=== PATIENT | male | born 1975 | race Caucasian/White ===

== ENCOUNTER → 2018-05-29 | Outpatient (CLI) | payer BC ==
--- NOTE | 2018-05-29 20:16 | US ---
EXAMINATION TYPE: US abdomen limited DATE OF EXAM: 05/29/2018 COMPARISON: NONE CLINICAL HISTORY: RUQ pain. RUQ pain and fever. EXAM MEASUREMENTS: Liver Length: 15.80cm Gallbladder Wall: .3cm CBD: .5cm Right Kidney: 10.6 x 5.2 x 4.9cm Pancreas: Obscured by bowel gas Liver: wnl Gallbladder: wnl Evidence for sonographic Gupta's sign: No CBD: wnl Right Kidney: wnl IMPRESSION: Negative right upper quadrant abdominal sonogram. No gallstones or dilated ducts.
== END | disposition home or self-care (01) ==
LOC: RADUSMAIN 18:55
PROVIDERS: ATTEND Nurse Practitioner Family
DX: R10.11 Right upper quadrant pain (principal)
CPT/HCPCS: 76705

== ENCOUNTER → 2018-05-29 | Outpatient (CLI) | payer BC ==
[2018-05-29 20:27] LABS: Basophils % (A) 1 %; Eosinophils # (A) 0.1 k/uL (0-0.7); Eosinophils % (A) 1 %; HCT 42.7 % (39.0-53.0); HGB 15.1 gm/dL (13.0-17.5); Lymphocytes # (A) 1.1 k/uL (1.0-4.8); Lymphocytes % (A) 28 %; MCH 31.7 pg (25.0-35.0); MCHC 35.3 g/dL (31.0-37.0); MCV 89.9 fL (80.0-100.0); Mean Platelet Volume 8.2; Monocytes # (A) 0.3 k/uL (0-1.0); Monocytes % (A) 8 %; Neutrophils # (A) 2.2 k/uL (1.3-7.7); Neutrophils % (A) 58 %; RBC 4.75 m/uL (4.30-5.90); RDW 12.2 % (11.5-15.5); WBC 3.9 k/uL (3.8-10.6)
[2018-05-29 20:47] LABS: Platelet Count 78 k/uL (150-450)
[2018-05-30 03:39] LABS: Albumin 4.6 g/dL (3.80-4.90); Albumin/Globulin Ratio 2.71 (1.20-2.10); Anion Gap 9.3 mmol/L (4.00-12.00); Calcium 9.4 mg/dL (8.7-10.3); Carbon Dioxide 25.7 mmol/L (21.6-31.8); Globulin 1.7 g/dL (2.1-3.7); Potassium 3.8 mmol/L (3.5-5.5); Total Bilirubin 1.4 mg/dL (0.2-1.2); Total Protein 6.3 g/dL (6.2-8.2)
== END ==
LOC: LABMAIN 18:50
PROVIDERS: ATTEND Nurse Practitioner Family
DX: R10.11 Right upper quadrant pain (principal)
CPT/HCPCS: 36415; 80053; 82150; 83690; 85025

== ENCOUNTER 2020-04-27 18:09 | Emergency (ER) | payer BC ==
[2020-04-27 18:35] VITALS: BP 122/81; PULSE 84; RESP 18; TEMP 97.7
--- NOTE | 2020-04-27 19:24 | XR ---
EXAMINATION TYPE: XR lumbar spine 2 or 3V DATE OF EXAM: 04/27/2020 COMPARISON: NONE HISTORY: Back pain TECHNIQUE: 3 views FINDINGS: There is very slight anterior subluxation of L5 in relation S1 of 4 mm. There is probably b ilateral L5 spondylolysis. Disc spaces are normal. Sacroiliac joints appear intact. IMPRESSION: L5 spondylolysis with minimal first-degree L5-S1 spondylolisthesis.
--- NOTE | 2020-04-27 19:25 | XR ---
EXAMINATION TYPE: XR thoracic spine complete DATE OF EXAM: 04/27/2020 COMPARISON: NONE HISTORY: Pain TECHNIQUE: 3 views FINDINGS: Thoracic vertebra have normal alignment. Posterior elements are intact. There is no stephanie kristy fracture. There is no paraspinal mass. IMPRESSION: Negative thoracic spine exam.
--- NOTE | 2020-04-27 20:08 | ED ---
Recheck HPI - General Chief Complaint: Recheck/Abnormal Lab/Rx Stated Complaint: back pain & abdominal pain, headaches Time Seen by Provider: 04/27/20 18:46 Source: patient Mode of arrival: ambulatory Limitations: no limitations - History of Present Illness Initial Comments: Very pleasant 45yo male presenting today to the ER for cc of back pain, concern for covid. Patient states that he was jumping in the leave with his son, stating the pile was not very large and was attempting to do a somersault like moves ect when he felt pain in his upper and lower back. Patient denies neck pain. Denies LOC or head injury. Patient states that the pain is midline of mid back and low back increases with movement/twisting or direct contact. denies abdominal pain, chest pain. 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 Denies neck stiffness, worst HERNANDEZ of life, sudden onset. Denies vomiting. loss of bowel/bladder control, urinary retention, sensation deficits or leg weakness. Patient appears well nontoxic in no acute distress on arrival. - Related Data Allergies Allergy/AdvReac Type Severity Reaction Status Date / Time No Known Allergies Allergy Verified 04/27/20 18:35 Review of Systems ROS Statement: Those systems with pertinent positive or pertinent negative responses have been documented in the HPI. ROS Other: All systems not noted in ROS Statement are negative. Past Medical History Past Medical History: COPD History of Any Multi-Drug Resistant Organisms: None Reported Past Surgical History: Ear Surgery, Hernia Repair, Orthopedic Surgery Smoking Status: Former smoker Past Alcohol Use History: Rare Past Drug Use History: None Reported General Exam - General Exam Comments Initial Comments: General: The patient is awake and alert, in no distress Eye: +3 mm pupils are equal, round and reactive to light, extra-ocular movements are intact. No nystagmus. There is normal conjunctiva bilaterally. No signs of icterus. Cardiovascular: There is a regular rate and rhythm. No murmur, rub or gallop is appreciated. Respiratory: Lungs are clear to auscultation, respirations are non-labored, breath sounds are equal. No wheezes, stridor, rales, or rhonchi. Musculoskeletal: Midline tenderness to palpation of the mid thoracic and lower lumbar spine. no skin changes. Normal ROM, no tenderness. Strength 5/5 of the LE b/l. Sensation intact of the LE b/l including the saddle region. Pulses equal bilaterally 2+. Neurological: A&O x 3. CN II-XII intact grossly, There are no obvious motor or sensory deficits. Coordination appears grossly intact. Speech is normal. Skin: Skin is warm and dry and no rashes or lesions are noted. Psychiatric: Cooperative, appropriate mood & affect, normal judgment. Limitations: no limitations Course Vital Signs 04/27/20 18:32 Temperature 97.7 F Pulse Rate 84 Respiratory 18 Rate Blood Pressure 122/81 O2 Sat by Pulse 99 Oximetry Medical Decision Making - Medical Decision Making Covid testing pending. NO SOB or Chest pain. Patient xr shows degenerative changes of the spine. Patient neurovascularly intact. hx of trauma. BP WNL. at this time i feel pt is stable for discharge with pcp f/u. return for worsening symptoms. Dr. Romero is agreeable to care plan. Disposition Clinical Impression: Back pain, Fall, Body aches, Headache Disposition: HOME SELF-CARE Condition: Good Instructions (If sedation given, give patient instructions): Back Pain (ED) Additional Instructions: Please use medication as discussed. Please follow-up with family doctor in the next 2 days, recommend orthopedic spine follow-up, we will call with covid results, return for shortness of breath, cough, chest pain, bowel bladder control urinary retention, leg weakness, new erectile dysfunction.. Please return to emergency room if the symptoms increase or worsen or for any other con cerns. Is patient prescribed a controlled substance at d/c from ED?: No Referrals: Parvez Ward MD [Primary Care Provider] - 1-2 days Supriya Redman DO [Doctor of Osteopathic Medicine] - 1-2 days Lui Hickman DO [Doctor of Osteopathic Medicine] - 1-2 days Time of Disposition: 20:07
== END 2020-04-27 20:19 | disposition home or self-care (01) ==
LOC: EC 18:09
DX: M54.5 Low back pain (principal); R51.9 Headache, unspecified; M54.6 Pain in thoracic spine; Z20.828 Contact with and (suspected) exposure to other viral communicable diseases; Z87.891 Personal history of nicotine dependence; W17.89XA Other fall from one level to another, initial encounter
CPT/HCPCS: 72072; 72100; 99284; U0003

== ENCOUNTER 2020-11-18 09:02 | Emergency (ER) | payer BC ==
[2020-11-18 09:10] VITALS: BP 133/89; PULSE 71; RESP 18; TEMP 97.8
[2020-11-18] MEDS ORDERED: KETOROLAC 15 MG/ML 1 ML VIAL IVP STA (09:26)
--- NOTE | 2020-11-18 09:29 | ED ---
Lower Extremity Injury HPI - General Chief Complaint: Extremity Injury, Lower Stated Complaint: Knee pain Time Seen by Provider: 11/18/20 09:15 Source: patient, RN notes reviewed Mode of arrival: ambulatory Limitations: no limitations - History of Present Illness Initial Comments: Patient is a 45-year-old male that presents to emergency department with right knee pain and swelling. He notes that he was playing with his kids a bunch over the weekend was walking fine on Sunday night woke up Sunday morning with a swollen right knee and moderate pain. He notes that while laying in bed the pain isn't terrible just kind aches. He stands up the swelling is worse and he can barely put weight on it. She denied any injury or trauma that he knows of. She denied any recent history of knee issues. He denied any warmness or severe tenderness. He was in moderate discomfort but no pain while sitting up in bed during the exam interview. He was any chest pain shortness of breath headache nausea vomiting diarrhea constipation fever fatigue chills. He denied any weakness numbness tingling in his right lower extremity. He did report some decreased range of motion secondary to pain. - Related Data Previous Rx's Medication Instructions Recorded predniSONE 10 mg PO DIRECTED #30 tab 11/18/20 Allergies Allergy/AdvReac Type Severity Reaction Status Date / Time No Known Allergies Allergy Verified 11/18/20 09:10 Review of Systems ROS Statement: Those systems with pertinent positive or pertinent negative responses have been documented in the HPI. ROS Other: All systems not noted in ROS Statement are negative. Past Medical History Past Medical History: COPD History of Any Multi-Drug Resistant Organisms: None Reported Past Surgical History: Ear Surgery, Hernia Repair, Orthopedic Surgery Smoking Status: Former smoker Past Alcohol Use History: Rare Past Drug Use History: None Reported General Exam Limitations: no limitations General appearance: alert, in no apparent distress Head exam: Present: atraumatic, normocephalic, normal inspection Eye exam: Present: normal appearance, PERRL, EOMI. Absent: scleral icterus, conjunctival injection, periorbital swelling Neck exam: Present: normal inspection Respiratory exam: Present: normal lung sounds bilaterally. Absent: respiratory distress, wheezes, rales, rhonchi, stridor Cardiovascular Exam: Present: regular rate, normal rhythm, normal heart sounds. Absent: systolic murmur, diastolic murmur, rubs, gallop, clicks GI/Abdominal exam: Present: soft, normal bowel sounds. Absent: distended, tenderness, guarding, rebound, rigid Right Knee exam: Present: normal inspection, tenderness (Minimal on palpation), swelling (Generalized whole knee), effusion. Absent: full ROM (Secondary to pain), abrasion, laceration, ecchymosis, deformity, crepitus, dislocation, erythema Neurological exam: Present: alert, oriented X3, CN II-XII intact Psychiatric exam: Present: normal affect, normal mood Skin exam: Present: warm, dry, intact, normal color. Absent: rash Course Vital Signs 11/18/20 09:06 Temperature 97.8 F Pulse Rate 71 Respiratory 18 Rate Blood Pressure 133/89 O2 Sat by Pulse 99 Oximetry Medical Decision Making - Medical Decision Making 45-year-old male complaining of right knee pain 3 days. 15 mg of Toradol, CT of the right knee ordered. Case discussed with Dr. Light, patient could discharge home with follow-up to primary care. Patient discharged in stable condition. - Radiology Data Radiology results: report reviewed, image reviewed CT of the right knee: Moderate joint effusion. No acute osseous abnormality. Clinical correlation for calcium pyrophosphate deposition disease is recommended. Disposition Clinical Impression: Knee effusion, right Disposition: HOME SELF-CARE Condition: Stable Instructions (If sedation given, give patient instructions): Knee Pain (ED) Additional Instructions: Please return to the Emergency Department if symptoms worsen or any other concerns. Take Tylenol and/or Motrin for pain and inflammation. Take steroids as prescribed. Follow-up with orthopedics and primary care as needed. Prescriptions: predniSONE 10 mg PO DIRECTED #30 tab Is patient prescribed a controlled substance at d/c from ED?: No Referrals: Parvez Ward MD [Primary Care Provider] - 1-2 days Chris Valdez MD [STAFF PHYSICIAN] - 1-2 days Time of Disposition: 10:56
[2020-11-18] MEDS ORDERED: KETOROLAC 15 MG/ML 1 ML VIAL IM STA (09:36)
--- NOTE | 2020-11-18 10:24 | CT ---
EXAMINATION TYPE: CT knee RT wo con DATE OF EXAM: 11/18/2020 COMPARISON: None HISTORY: knee pain and swelling CT DLP: 136.3 mGycm Automated exposure control for dose reduction was used. Contrast: None Technique: Axial images 3 mm thick sections. Reconstructed images in the coronal and sagittal planes. 3-D reconstructive images performed on a separate computer by the technologist are present. FINDINGS: There is mild joint space narrowing along the medial compartment. Some minimal calcification within t he menisci may be present. Correlate for calcium pyrophosphate deposition disease. No acute fractures are evident. There is a moderate joint effusion present IMPRESSION: 1. MODERATE JOINT EFFUSION. 2. NO ACUTE OSSEOUS ABNORMALITY. 3. CLINICAL CORRELATION FOR CALCIUM PYROPHOSPHATE DEPOSITION DISEASE IS RECOMMENDED.
== END 2020-11-18 11:05 | disposition home or self-care (01) ==
LOC: EC 09:02
DX: M25.461 Effusion, right knee (principal); J44.9 Chronic obstructive pulmonary disease, unspecified; Z87.891 Personal history of nicotine dependence
CPT/HCPCS: 73700; 99283; 96372; J1885